=== PATIENT | male | born 1980 | race Caucasian/White ===

== ENCOUNTER → 2016-04-12 | Outpatient (CLI) | payer BC ==
[2016-04-12 18:23] LABS: Basophils # (A) 0.1 k/uL (0-0.2); Basophils % (A) 1 %; CH 29.7; CHCM 34.6; Eosinophils # (A) 0.2 k/uL (0-0.7); Eosinophils % (A) 4 %; HCT 43.9 % (39.0-53.0); HDW 2.77; HGB 14.8 gm/dL (13.0-17.5); Luc # (Auto) 0.17; Luc % (Auto) 3; Lymphocytes % (A) 36 %; MCH 29.2 pg (25.0-35.0); MCHC 33.8 g/dL (31.0-37.0); MCV 86.4 fL (80.0-100.0); Mean Platelet Volume 8.7; Monocytes # (A) 0.3 k/uL (0-1.0); Monocytes % (A) 4 %; Neutrophils # (A) 2.9 k/uL (1.3-7.7); Neutrophils % (A) 51 %; RBC 5.08 m/uL (4.30-5.90); RDW 13.1 % (11.5-15.5); WBC 5.6 k/uL (3.8-10.6); WBC (Perox) 5.34
[2016-04-12 18:39] LABS: ALT 33 U/L (21-72); AST 29 U/L (17-59); Alkaline Phosphatase 66 U/L (38-126); Anion Gap 10 mmol/L; Blood Urea Nitrogen 18 mg/dL (9-20); Calcium 9.8 mg/dL (8.4-10.2); Carbon Dioxide 24 mmol/L (22-30); Chloride 107 mmol/L (98-107); Cholesterol 234 mg/dL (<200); Glucose 95 mg/dL (74-99); HDL Cholesterol 57 mg/dL (40-60); Non-African American GFR(MDRD) >60 (>60 ml/min/1.73 sqM); Potassium 4.4 mmol/L (3.5-5.1); Sodium 141 mmol/L (137-145); Total Bilirubin 0.7 mg/dL (0.2-1.3); Total Protein 7.2 g/dL (6.3-8.2); Triglycerides 192 mg/dL (<150)
== END | disposition home or self-care (01) ==
LOC: MMGSC 15:48
PROVIDERS: ATTEND Family Medicine
DX: Z00.00 Encounter for general adult medical examination without abnormal findings (principal)
CPT/HCPCS: 36415; 80053; 80061; 84439; 84443; 85025

== ENCOUNTER → 2017-05-03 | Outpatient (CLI) | payer BC ==
[2017-05-03 20:50] LABS: Cholesterol 220 mg/dL (<200); Glucose 67 mg/dL (74-99); HDL Cholesterol 49 mg/dL (40-60); LDL Cholesterol,Calculated 153 mg/dL (0-99); Triglycerides 89 mg/dL (<150)
== END | disposition home or self-care (01) ==
LOC: MMGSC 09:37
PROVIDERS: ATTEND Family Medicine
DX: Z00.00 Encounter for general adult medical examination without abnormal findings (principal)
CPT/HCPCS: 36415; 80061; 82947

== ENCOUNTER 2021-10-07 10:02 | Emergency (ER) | payer BC ==
[2021-10-07 10:20] VITALS: TEMP 98.4
[2021-10-07] MEDS ORDERED: SODIUM CHLORIDE 0.9% 2,000 ML IV STA (11:33)
--- NOTE | 2021-10-07 12:23 | CT ---
EXAMINATION TYPE: CT abdomen pelvis wo con DATE OF EXAM: 10/07/2021 COMPARISON: None HISTORY: Pain CT DLP: 925.7 mGycm Automated exposure control for dose reduction was used. TECHNIQUE: Helical acquisition of images was performed from the lung bases through the pelvis. FINDINGS: LUNG BASES: Cardiomegaly noted.. LIVER/GB: No significant abnormality is appreciated. PANCREAS: No significant abnormality is seen. SPLEEN: No significant abnormality is seen. ADRENALS: No significant abnormality is seen. KIDNEYS: Right kidney: There is right-sided perinephric edema is 1 mm lower right renal calculus. Moderate hyd ronephrosis and hydroureter with a 6 mm calcification seen within the proximal ureter. Left kidney: There are 2 punctate 1 mm calculi involving the mid and lower pole left kidney with no h ydronephrosis. ADENOPATHY: None visualized. OSSEOUS STRUCTURES: No significant abnormality is seen. BOWEL: Bowel gas pattern nonspecific with no obstruction. OTHER: Prostate calcifications are seen in calcification left pelvis appears to be vascular. Aorta no rmal caliber. There is a soft tissue nodule in the left upper quadrant near the diaphragm measuring 2 .4 cm. Could represent a splenule. Recommend follow-up contrasted exam for further characterization t o exclude other etiologies including adenopathy or mass. Small fat-containing periumbilical hernia. Q uestion mild bladder wall thickening. IMPRESSION: 1. Moderate right hydronephrosis secondary to 6 mm proximal right ureteral calculus. 2. Bilateral nephrolithiasis. There may be mild bladder wall thickening, correlate for cystitis. 3. There is a 2.4 cm soft tissue nodule left upper quadrant near the diaphragm. Accessory spleen or s plenule in the differential diagnosis. Other etiologies are not excluded as discussed above. Recommen d postcontrast exam on a short-term follow-up basis for further evaluation.
[2021-10-07] MEDS: KETOROLAC 15 MG/ML 1 ML VIAL IVP STA ×2 (12:32→13:48)
[2021-10-07 12:39] LABS: Basophils # (A) 0.1 k/uL (0-0.2); Basophils % (A) 1 %; Eosinophils % (A) 0 %; HGB 14.8 gm/dL (13.0-17.5); Lymphocytes # (A) 0.9 k/uL (1.0-4.8); Lymphocytes % (A) 9 %; MCH 28.1 pg (25.0-35.0); MCHC 32.8 g/dL (31.0-37.0); MCV 85.7 fL (80.0-100.0); Mean Platelet Volume 8.3; Monocytes # (A) 0.3 k/uL (0-1.0); Monocytes % (A) 3 %; Neutrophils # (A) 8.6 k/uL (1.3-7.7); Neutrophils % (A) 86 %; Platelet Count 250 k/uL (150-450); RBC 5.25 m/uL (4.30-5.90); RDW 13.5 % (11.5-15.5)
[2021-10-07] MEDS ORDERED: TAMSULOSIN 0.4 MG CAP.ER.24H PO STA (12:39)
[2021-10-07 12:54] LABS: Albumin 4.6 g/dL (3.5-5.0); Calcium 9.6 mg/dL (8.4-10.2); Potassium 4.3 mmol/L (3.5-5.1); Total Bilirubin 0.8 mg/dL (0.2-1.3); Total Protein 7.7 g/dL (6.3-8.2)
--- NOTE | 2021-10-07 13:16 | ED ---
Abdominal Pain HPI - General Chief Complaint: Abdominal Pain Stated Complaint: abd and back pain Time Seen by Provider: 10/07/21 11:25 Source: patient Mode of arrival: ambulatory Limitations: no limitations - History of Present Illness Initial Comments: Patient is a 40-year-old male who presents to the emergency department with a chief complaint of abdominal pain. Patient states the pain started at 3 AM this morning with multiple episodes of vomiting. Describes as pain in the right abdomen which radiates to the right side and right back. Denies fever or chills, testicular pain, penile discharge, burning with urination, blood in the urine. Does admit to history of kidney stones with lithotripsy and stenting. States urologist was in [place] where he used to live. - Related Data Previous Rx's Medication Instructions Recorded Ketorolac [Toradol] 10 mg PO Q8H PRN #21 tab 10/07/21 Tamsulosin [Flomax] 0.4 mg PO DAILY #14 cap 10/07/21 Allergies Allergy/AdvReac Type Severity Reaction Status Date / Time Sulfa (Sulfonamide Allergy Rash/Hives Verified 10/07/21 13:27 Antibiotics) Review of Systems ROS Statement: Those systems with pertinent positive or pertinent negative responses have been documented in the HPI. ROS Other: All systems not noted in ROS Statement are negative. Past Medical History Additional Past Medical History / Comment(s): Kidney stones, History of Any Multi-Drug Resistant Organisms: None Reported Additional Past Surgical History / Comment(s): Cyst on testes Smoking Status: Never smoker Past Alcohol Use History: Occasional Past Drug Use History: None Reported General Exam Limitations: no limitations General appearance: alert, in no apparent distress Respiratory exam: Present: normal lung sounds bilaterally. Absent: respiratory distress, wheezes, rales, rhonchi, stridor Cardiovascular Exam: Present: regular rate, normal rhythm, normal heart sounds. Absent: systolic murmur, diastolic murmur, rubs, gallop, clicks GI/Abdominal exam: Present: soft, normal bowel sounds. Absent: distended, tenderness, guarding, rebound, rigid Back exam: Present: normal inspection, full ROM, CVA tenderness (R), paraspinal tenderness (right lumbar ). Absent: vertebral tenderness Neurological exam: Present: alert, oriented X3, CN II-XII intact Skin exam: Present: warm, dry, intact, normal color. Absent: rash Course Vital Signs 10/07/21 10/07/21 10:17 14:47 Temperature 98.4 F Pulse Rate 84 97 Respiratory 20 18 Rate Blood Pressure 131/75 127/87 O2 Sat by Pulse 98 98 Oximetry Medical Decision Making - Medical Decision Making This is a 40-year-old male who presents with right-sided abdominal pain radiation to the right flank and right back. Thorough history and examination were performed. There is no abdominal tenderness. There significant right CVA tenderness. Laboratory studies obtained. There is no leukocytosis. There is good kidney function. Patient unable to give urine sample. No burning with urination. CT of the abdomen and pelvis without contrast shows moderate right hydronephrosis secondary to 6 mm proximal right ureteral calculus. There is also an incidental finding of a 2.4 cm soft tissue nodule in the left upper quadrant near the diaphragm. Accessory spleen or splenule in the differential diagnosis. Pain controlled. Results discussed with patient. This is a well-appearing patient with a relatively small kidney stone, no fever, no leukocytosis, and good kidney function. Patient can pass kidney stone at home. He'll be discharged with Flomax and Toradol. Kidney stone education provided in detail. He will increase fluid intake and is discharged with urinary strainer. He is referred to urology. Dr. Colin is my attending. - Lab Data Result diagrams: 10/07/21 12:22 10/07/21 12:22 Lab Results 10/07/21 10/07/21 Range/Units 12:22 12:22 WBC 10.0 (3.8-10.6) k/uL RBC 5.25 (4.30-5.90) m/uL Hgb 14.8 (13.0-17.5) gm/dL Hct 45.0 (39.0-53.0) % MCV 85.7 (80.0-100.0) fL MCH 28.1 (25.0-35.0) pg MCHC 32.8 (31.0-37.0) g/dL RDW 13.5 (11.5-15.5) % Plt Count 250 (150-450) k/uL MPV 8.3 Neutrophils % 86 % Lymphocytes % 9 % Monocytes % 3 % Eosinophils % 0 % Basophils % 1 % Neutrophils # 8.6 H (1.3-7.7) k/uL Lymphocytes # 0.9 L (1.0-4.8) k/uL Monocytes # 0.3 (0-1.0) k/uL Eosinophils # 0.0 (0-0.7) k/uL Basophils # 0.1 (0-0.2) k/uL Sodium 138 (137-145) mmol/L Potassium 4.3 (3.5-5.1) mmol/L Chloride 103 (98-107) mmol/L Carbon Dioxide 23 (22-30) mmol/L Anion Gap 12 mmol/L BUN 20 (9-20) mg/dL Creatinine 1.27 H (0.66-1.25) mg/dL Est GFR (CKD-EPI)AfAm 81 (>60 ml/min/1.73 sqM) Est GFR (CKD-EPI)NonAf 70 (>60 ml/min/1.73 sqM) Glucose 110 H (74-99) mg/dL Calcium 9.6 (8.4-10.2) mg/dL Total Bilirubin 0.8 (0.2-1.3) mg/dL AST 33 (17-59) U/L ALT 30 (4-49) U/L Alkaline Phosphatase 74 (38-126) U/L Total Protein 7.7 (6.3-8.2) g/dL Albumin 4.6 (3.5-5.0) g/dL Lipase 144 (23-300) U/L Disposition Clinical Impression: Kidney stone on right side Disposition: HOME SELF-CARE Condition: Good Instructions (If sedation given, give patient instructions): Kidney Stones (ED) Additional Instructions: Take medication as directed. Increase fluid intake which will help passed stone. Use a strainer when urinating in attempt to catch the stone. Follow-up with urologist in one to 2 use days and bring stone to your appointment. There is a 2.4 cm soft tissue nodule in the left upper quadrant near your diaphragm. This could be a spenule or something of other cause. Please follow up with primary care about this. Return to the emergency department if you experience new, concerning, or worsening symptoms. Prescriptions: Tamsulosin [Flomax] 0.4 mg PO DAILY #14 cap Ketorolac [Toradol] 10 mg PO Q8H PRN #21 tab PRN Reason: Pain Is patient prescribed a controlled substance at d/c from ED?: No Referrals: Theresa Baker MD [Primary Care Provider] - 1-2 days Oren Kumari MD [STAFF PHYSICIAN] - 1-2 days Time of Disposition: 14:11
[2021-10-07 14:49] VITALS: BP 127/87; PULSE 97; RESP 18
== END 2021-10-07 14:49 | disposition home or self-care (01) ==
LOC: EC 10:02
DX: N13.2 Hydronephrosis with renal and ureteral calculous obstruction (principal); Z88.2 Allergy status to sulfonamides
CPT/HCPCS: 80053; 83690; 85025; 74176; 99284; 96374; 96361; J1885; 36415

== ENCOUNTER → 2024-04-17 | Outpatient (CLI) | payer BC ==
--- NOTE | 2024-04-17 13:19 | CT ---
EXAMINATION TYPE: CT abdomen pelvis wo con DATE OF EXAM: 04/17/2024 12:40 PM COMPARISON: CT abdomen pelvis most recent from 10/07/2021. CLINICAL INDICATION: Male, 43 years old with history of N20.1 CALCULUS OF URETER; Rt side flank pain. TECHNIQUE: Axial CT abdomen pelvis wo con;Sagittal and coronal reformats were created on a separate workstation. Contrast used: mL of , (none if empty) Oral contrast used: with Oral Contrast (none if empty) CT DLP: 1063 mGycm, Automated exposure control for dose reduction was used. FINDINGS: LOWER CHEST: Indeterminate lesion in the left epicardial fat measuring 32 Hounsfield units and up to 29 x 23 mm May be slightly increased in size from prior where measured 26 x 18 mm. ABDOMEN LIVER: Simple appearing right hepatic lobe cyst. GALLBLADDER AND BILE DUCTS: Unremarkable. PANCREAS: Unremarkable. SPLEEN: Unremarkable. ADRENAL GLANDS: Unremarkable. KIDNEYS AND URETERS: Mild right hydronephrosis secondary to 7 mm kyphosis at the ureterovesicular manas ction. Nonobstructing right 2 mm calculus also present. Not certain left 2 mm contrast. No left obstr uctive uropathy. PELVIS BLADDER: No evidence for wall thickening or mass given limitations of exam. REPRODUCTIVE: Prostate is enlarged in size measuring 4.8 cm in transverse dimension. ABDOMEN & PELVIS STOMACH AND BOWEL: No evidence of bowel obstruction. The appendix is normal. PERITONEUM/RETROPERITONEUM: No evidence of pneumoperitoneum or free fluid. Nonspecific Gi[facility]ana mesenter y similar to prior. VASCULATURE: No evidence of aortic aneurysm. MUSCULOSKELETAL: No acute osseous abnormalities LYMPH NODES: No gross evidence for lymphadenopathy. SOFT TISSUE/ABDOMINAL WALL: Fat-containing umbilical hernia. IMPRESSION: 1. Mild right hydronephrosis secondary obstructing 7 mm calcification at the ureterovesicular juncti on. Additional bilateral nonobstructing contrast. 2. Mildly increased soft tissue mass in the left epicardial fat compared to 2021. Possibly represent ing computed cyst. Consider MRI for further evaluation. [facility], , 04/17/2024 1:17 PM
== END | disposition home or self-care (01) ==
LOC: RADCTMAIN 12:18
PROVIDERS: ATTEND Urology
DX: N13.2 Hydronephrosis with renal and ureteral calculous obstruction (principal)
CPT/HCPCS: 74176

== ENCOUNTER → 2024-04-17 | Outpatient (CLI) | payer BC ==
[2024-04-17 15:01] LABS: Basophils # (A) 0.09 X 10*3/uL (0.00-0.10); Basophils % (A) 1.7 %; Eosinophils # (A) 0.22 X 10*3/uL (0.04-0.35); Eosinophils % (A) 4.2 %; HCT 41.5 % (39.6-50.0); Lymphocytes # (A) 2.43 X 10*3/uL (0.90-5.00); Lymphocytes % (A) 45.8 %; MCHC 33.7 g/dL (32.0-37.0); Mean Platelet Volume 11.5 FL (9.5-12.2); Monocytes # (A) 0.38 X 10*3/uL (0.20-1.00); Monocytes % (A) 7.2 %; NRBC Per 100 WBC 0 X 10*3/uL (0.00-0.01); Neutrophils # (A) 2.17 X 10*3/uL (1.80-7.70); Neutrophils % (A) 40.9 %; Platelet Count 245 X 10*3/uL (140-440); RDW 13.9 % (11.5-14.5)
[2024-04-17 15:05] LABS: Blood Urea Nitrogen 15.3 mg/dL (9.0-27.0); Calcium 9.6 mg/dL (8.7-10.3); Chloride 106 mmol/L (96-109); Glucose 97 mg/dL (70-110); Potassium 4.4 mmol/L (3.5-5.5); Sodium 140 mmol/L (135-145)
== END | disposition home or self-care (01) ==
LOC: LABPAT 11:59
PROVIDERS: ATTEND Urology
DX: Z01.812 Encounter for preprocedural laboratory examination (principal); N20.1 Calculus of ureter
CPT/HCPCS: 80048; 85025